=== PATIENT | male | born 1950 | race American Indian/Alaskan Native ===

== ENCOUNTER 2017-06-20 15:06 | Outpatient (CLI) | payer MEDICARE ==
--- NOTE | 2017-06-20 16:06 | Mammography Report ---
Bilateral mammogram and sonogram palpable area left breast: No previous studies are available. CAD study utilized. Findings: Limited images of left breast due to presence of pacemaker. Normal breast parenchyma with suspicion of a mass in the subareolar area left breast. No microcalcification. Normal axilla. Sonographic examination reveals oval uniformly echogenic mass palpable area left breast measuring 3.5 cm in maximum diameter. 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 6 month followup with left mammogram and sonogram recommended. BI-RADS CATEGORY: 3 = Probably benign ACR BI-RADS MAMMOGRAPHIC CODES: 0 = Needs additional imaging evaluation; 1 = Negative; 2 = Benign; 3 = Probably benign; 4 = Suspicious; 5 = Malignant; 6 = Known biopsy-proven malignancy COMMENT: 1. Dense breast tissue, i.e., adenosis, fibrocystic changes, etc., may obscure an underlying neoplasm. 2. Approximately 10% of cancers are not detected with mammography. 3. A negative mammography report should not delay biopsy if a clinically suspicious mass is present. COMMENT: Patient follow-up letters are generated in [employer].
== END 2017-06-20 15:07 | disposition home or self-care (01) ==
LOC: US 15:06
PROVIDERS: ATTEND Nurse Practitioner
DX: N64.59 Other signs and symptoms in breast (principal); N63.20 Unspecified lump in the left breast, unspecified quadrant
CPT/HCPCS: 76642; G0204; 77066